=== PATIENT | male | born 1950 | race Caucasian/White ===

== ENCOUNTER 2016-09-23 13:41 | Emergency (ER) | payer OTHER ==
[2016-09-23 13:57] VITALS: TEMP 98.3
[2016-09-23] MEDS ORDERED: IPRATROPIUM/ALBUTEROL 3 ML VIAL NEB ONE ×2 (14:00→14:08)
--- NOTE | 2016-09-23 14:08 | ED.PDOC ---
History of Present Illness - General Chief Complaint: Respiratory Problem Stated Complaint: difficulty breathing Time Seen by Provider: 09/23/16 14:05 Source: RN notes reviewed, Vital Signs reviewed, EMS notes reviewed Exam Limitations: clinical condition, language barrier, physical impairment Additional Information: Patient awake and alert ,unable to communicate because of tracheostomy mechanical ventilation non verbal.Chest x-ray done this am report showing developing infiltrate right middle lobe. - History of Present Illness Initial Comments: He was brought by EMS after they were called up on this patient ventilator dependent after he was was taken out of his vent wanting to go out on the floor with walker. Timing/Duration: this morning Severity: moderate Possible Cause: chronic episodes, other - ventilator dependent,with tracheostomy ,chronic respiratory failure Respiratory Risk Factors: other - ventilator dependent chronic Allergies/Adverse Reactions: Allergies Cyclobenzaprine Allergy (Verified 09/23/16 13:57) Home Medications: Ambulatory Orders Albuterol Sulfate [Proair Hfa] 1 - 2 inh IN Q4H PRN 09/23/16 Alprazolam [Xanax] 1 mg PO Q4H PRN 09/23/16 Amoxicillin & Pot Clavulanate [Augmentin Xr 1000-62.5 mg] 1 tab PO ACHS #20 tab 09/23/16 Azithromycin Tab [Zithromax] 250 mg PO QD 09/23/16 Budesonide (Inhalation) [Pulmicort] 0.5 mg IN BID 09/23/16 Buspirone HCl 5 mg PO TID 09/23/16 Citalopram Hydrobromide [Celexa] 10 mg PO DAILY 09/23/16 Diltiazem HCl [Cardizem] 120 mg PO DAILY 09/23/16 Diphenhydramine HCl 25 mg PO BEDTIME PRN 09/23/16 Famotidine [Pepcid Tab] 20 mg PO BID 09/23/16 Furosemide [Lasix] 20 mg PO DAILY 09/23/16 HYDROcodone 10MG/APAP 325MG [[place] 10/325] 1 tab PO Q4H PRN 09/23/16 Ipratropium [place] 0.02 % IN Q4H PRN 09/23/16 Ipratropium/Albuterol [Duoneb] 3 ml NEB QID 09/23/16 Levalbuterol Nebs [Xopenex NEBS] 1.25 mg NEB Q6H 09/23/16 Loratadine 10 mg PO DAILY 09/23/16 Magnesium Hydroxide [Milk Of Magnesia] 30 ml PO DAILY PRN 09/23/16 Magnesium Hydroxide [Milk Of Magnesia] 30 ml PO EMMY-OTH-DAY 09/23/16 Melatonin 10 mg PO BEDTIME 09/23/16 Potassium Chloride [Micro-K] 10 meq PO DAILY 09/23/16 Tamsulosin [Flomax] 0.4 mg PO QD 09/23/16 predniSONE [Prednisone] 10 mg PO DAILY 09/23/16 Review of Systems - Review of Systems Unable to Obtain Due To: condition, clinical condition - non verbal Past Medical History (General) - Patient Medical History Hx of COPD: Yes Hx Cardiac Disorders: Yes - Atrial fib Hx Hypertension: Yes Hx Gastroesophageal Reflux: Yes Hx Hepatitis C: Yes - Vaccination History Hx Influenza Vaccination: Yes Hx Pneumococcal Vaccination: Yes - Social History Hx Tobacco Use: Yes Hx Depression: Yes - Activities of Daily Living Detention/Assisted Living (if applicable):: [facility] Grooming Ability: Minimum Assistance Eating (Feeding) Ability: Moderate Assistance Toileting Ability: Moderate Assistance Family Medical History - Family History Father Family History: Unknown Living Status: Unknown Physical Exam - Physical Exam General Appearance: Alert, No apparent distress, Well Developed ENT Exam: normal ENT inspection, TMs normal, pharynx normal Neck: trachea midline - tacheostomy tube intact,clear no mucus plug Respiratory: chest non-tender - on ventsimv vt-500,rr-14 peep 5,fio2-45 sat-96% , no respiratory distress, rhonchi, other - on vent simv,tv-500,rr14 peep5 fio2- 45,sao2 97% Gastrointestinal/Abdominal: normal bowel sounds, non tender, soft, no organomegaly, no pulsatile mass Extremity: non-tender, normal inspection, no pedal edema Neurologic: no motor/sensory deficits, alert Skin Exam: normal color, warm/dry Progress - Results/Orders Results/Orders: 09/23/16 14:09 SVN/Updraft Therapy .ONCE 09/23/16 Dinner Regular Diet Laboratory Results WBC 10.6 K/mm3 (4.8-10.8) 09/23/16 14:08 RBC 3.39 M/mm3 (4.70-6.10) L 09/23/16 14:08 Hgb 10.0 gm/dL (14.0-18.0) L 09/23/16 14:08 Hct 31.4 % (42.0-52.0) L 09/23/16 14:08 MCV 92.6 fl (80.0-94.0) 09/23/16 14:08 MCH 29.4 pg (27.0-31.0) 09/23/16 14:08 MCHC 31.7 g/dL (33.0-37.0) L 09/23/16 14:08 RDW 13.3 % (11.5-14.5) 09/23/16 14:08 Plt Count 167 K/mm3 (130-400) 09/23/16 14:08 MPV 7.7 fl (7.40-10.4) 09/23/16 14:08 Absolute Neuts (auto) 9.00 K/uL (1.8-6.8) H 09/23/16 14:08 Absolute Lymphs (auto) 0.70 K/uL (1.0-3.4) L 09/23/16 14:08 Absolute Monos (auto) 0.70 K/uL (0.2-0.8) 09/23/16 14:08 Absolute Eos (auto) 0.10 K/uL (0.0-0.4) 09/23/16 14:08 Absolute Basos (auto) 0.00 K/uL (0.0-0.1) 09/23/16 14:08 Neutrophils % 85.5 % (42.0-78.0) H 09/23/16 14:08 Lymphocytes % 6.7 % (20.0-50.0) L 09/23/16 14:08 Monocytes % 6.7 % (2.0-9.0) 09/23/16 14:08 Eosinophils % 0.8 % (1.0-5.0) L 09/23/16 14:08 Basophils % 0.3 % (0.0-2.0) 09/23/16 14:08 Sodium 137 mmol/L (135-145) 09/23/16 14:08 Potassium 5.3 mmol/L (3.6-5.0) H 09/23/16 14:08 Chloride 90 mmol/L (101-111) L 09/23/16 14:08 Carbon Dioxide 43 mmol/L (21-31) H 09/23/16 14:08 Anion Gap 9.3 (12-18) L 09/23/16 14:08 BUN 19 mg/dL (7-18) H 09/23/16 14:08 Creatinine 0.68 mg/dL (0.6-1.3) 09/23/16 14:08 BUN/Creatinine Ratio 27.9 (10-20) H 09/23/16 14:08 Random Glucose 135 mg/dL (70-105) H 09/23/16 14:08 Serum Osmolality 278.1 mOsm/L (275-295) 09/23/16 14:08 Calcium 8.8 mg/dL (8.4-10.2) 09/23/16 14:08 Total Bilirubin 0.5 mg/dL (0.2-1.0) 09/23/16 14:08 AST 21 IU/L (10-42) 09/23/16 14:08 ALT 14 IU/L (10-60) 09/23/16 14:08 Alkaline Phosphatase 49 IU/L (42-121) 09/23/16 14:08 Serum Total Protein 6.5 gm/dL (6.4-8.2) 09/23/16 14:08 Albumin 3.3 g/dl (3.2-5.5) 09/23/16 14:08 Globulin 3.2 gm/dL (2.3-3.5) 09/23/16 14:08 Albumin/Globulin Ratio 1.0 (1.1-1.9) L 09/23/16 14:08 Departure - Departure Clinical Impression: Respirator dependence, status, Chronic respiratory failure, unspecified whether with hypoxia or hypercapnia Pneumonia involving right lung Qualifiers: Pneumonia type: due to unspecified organism Lung location: middle lobe of lung Qualifier Code: (J18.9) Pneumonia, unspecified organism Time of Disposition: 16:29 Disposition: Discharge to Home or Self Care Condition: Good Departure Forms: ED Discharge - Pt. Copy, Patient Portal Self Enrollment Prescriptions: Amoxicillin & Pot Clavulanate [Augmentin Xr 1000-62.5 mg] 1 tab PO ACHS #20 tab Home Medications: Ambulatory Orders Albuterol Sulfate [Proair Hfa] 1 - 2 inh IN Q4H PRN 09/23/16 Alprazolam [Xanax] 1 mg PO Q4H PRN 09/23/16 Amoxicillin & Pot Clavulanate [Augmentin Xr 1000-62.5 mg] 1 tab PO ACHS #20 tab 09/23/16 Azithromycin Tab [Zithromax] 250 mg PO QD 09/23/16 Budesonide (Inhalation) [Pulmicort] 0.5 mg IN BID 09/23/16 Buspirone HCl 5 mg PO TID 09/23/16 Citalopram Hydrobromide [Celexa] 10 mg PO DAILY 09/23/16 Diltiazem HCl [Cardizem] 120 mg PO DAILY 09/23/16 Diphenhydramine HCl 25 mg PO BEDTIME PRN 09/23/16 Famotidine [Pepcid Tab] 20 mg PO BID 09/23/16 Furosemide [Lasix] 20 mg PO DAILY 09/23/16 HYDROcodone 10MG/APAP 325MG [[place] 10/325] 1 tab PO Q4H PRN 09/23/16 Ipratropium [place] 0.02 % IN Q4H PRN 09/23/16 Ipratropium/Albuterol [Duoneb] 3 ml NEB QID 09/23/16 Levalbuterol Nebs [Xopenex NEBS] 1.25 mg NEB Q6H 09/23/16 Loratadine 10 mg PO DAILY 09/23/16 Magnesium Hydroxide [Milk Of Magnesia] 30 ml PO DAILY PRN 09/23/16 Magnesium Hydroxide [Milk Of Magnesia] 30 ml PO EMMY-OTH-DAY 09/23/16 Melatonin 10 mg PO BEDTIME 09/23/16 Potassium Chloride [Micro-K] 10 meq PO DAILY 09/23/16 Tamsulosin [Flomax] 0.4 mg PO QD 09/23/16 predniSONE [Prednisone] 10 mg PO DAILY 09/23/16 Additional Instructions: RETURN TO EMERGENCY ROOM NEEDED
[2016-09-23 15:26] VITALS: BP 104/70; O2SAT 99
[2016-09-23] MEDS ORDERED: AMOXICILLIN & POT CLAVULANATE 875 MG TAB PO ONE (16:24)
== END 2016-09-23 17:04 | disposition home or self-care (01) ==
LOC: ER 13:41
DX: J18.9 Pneumonia, unspecified organism (principal); Z99.11 Dependence on respirator [ventilator] status; J96.10 Chronic respiratory failure, unspecified whether with hypoxia or hypercapnia; I48.91 Unspecified atrial fibrillation; Z79.899 Other long term (current) drug therapy; Z88.8 Allergy status to other drugs, medicaments and biological substances; I10 Essential (primary) hypertension; Z87.891 Personal history of nicotine dependence; F32.9 Major depressive disorder, single episode, unspecified; Z86.19 Personal history of other infectious and parasitic diseases
CPT/HCPCS: 80053; 85025; 94002; 94003; 94640; J7620

== ENCOUNTER 2016-10-03 10:51 | Emergency (ER) | payer OTHER ==
--- NOTE | 2016-10-03 11:30 | RAD ---
EXAM DESCRIPTION: XR CHEST 1 VIEW 10/03/2016 11:22 AM CLINICAL HISTORY: 65 y/o , M, mild ams COMPARISON: None FINDINGS: There is a tracheostomy with its tip at the thoracic and left. There are severe emphysematous changes throughout the lungs bilaterally with flattening of the diaphragms. There is no focal consolidation or pleural effusion. The heart is normal in size. The mediastinal contours are normal in appearance. The thoracic spine is age appropriate. The shoulders are unremarkable. Limited evaluation of the upper abdomen demonstrates no gross abnormalities. IMPRESSION: 1. No acute cardiopulmonary disease. 2. Severe emphysema. 3. Tracheostomy. Electronically signed by: Eugene Emery MD 10/03/2016 11:28
[2016-10-03 11:42] VITALS: TEMP 98.8
[2016-10-03] MEDS ORDERED: SODIUM CHLORIDE 0.9% 1000ML 1,000 ML IVS ONE (12:43)
--- NOTE | 2016-10-03 14:35 | ED.PDOC ---
History of Present Illness - General Chief Complaint: Respiratory Problem Stated Complaint: Difficulty Breathing Time Seen by Provider: 10/03/16 11:06 Source: patient, EMS notes reviewed, family, [facility] records Exam Limitations: language barrier - History of Present Illness Initial Comments: the patient is a 65-year-old male presenting with his from the [facility] secondary to altered mental status. The reports that he wasn' t waking up and interacting normally for him starting since 2 AM this morning. No shortness of breath and no nausea or vomiting. No fevers. He has a history of severe COPD with CO2 retention in the past. He is on a ventilator at night. He is on trach collar during the day. Since moving to the [facility] he has been getting several medications on a scheduled basis that he was only taking when necessary. One of these does include his Lasix and the others include Benadryl and Xanax at night for sleep which he had only intermittently taken prior. The patient was drowsy upon arrival here. He does move all extremities. He does shake his head yes and no appropriately. After 2 hours here he was actually acting normally. He is not complaining of anything at the time of discharge. Timing/Duration: 4-6 hours Severity: mild Improving Factors: nothing Worsening Factors: nothing Associated Symptoms: malaise Allergies/Adverse Reactions: Allergies Cyclobenzaprine Allergy (Verified 09/23/16 13:57) Home Medications: Ambulatory Orders Albuterol Sulfate [Proair Hfa] 1 - 2 inh IN Q4H PRN 09/23/16 Alprazolam [Xanax] 1 mg PO Q4H PRN 09/23/16 Amoxicillin & Pot Clavulanate [Augmentin Xr 1000-62.5 mg] 1 tab PO ACHS #20 tab 09/23/16 Azithromycin Tab [Zithromax] 250 mg PO QD 09/23/16 Budesonide (Inhalation) [Pulmicort] 0.5 mg IN BID 09/23/16 Buspirone HCl 5 mg PO TID 09/23/16 Citalopram Hydrobromide [Celexa] 10 mg PO DAILY 09/23/16 Diltiazem HCl [Cardizem] 120 mg PO DAILY 09/23/16 Diphenhydramine HCl 25 mg PO BEDTIME PRN 09/23/16 Famotidine [Pepcid Tab] 20 mg PO BID 09/23/16 Furosemide [Lasix] 20 mg PO DAILY 09/23/16 HYDROcodone 10MG/APAP 325MG [[place] 10/325] 1 tab PO Q4H PRN 09/23/16 Ipratropium [place] 0.02 % IN Q4H PRN 09/23/16 Ipratropium/Albuterol [Duoneb] 3 ml NEB QID 09/23/16 Levalbuterol Nebs [Xopenex NEBS] 1.25 mg NEB Q6H 09/23/16 Loratadine 10 mg PO DAILY 09/23/16 Magnesium Hydroxide [Milk Of Magnesia] 30 ml PO DAILY PRN 09/23/16 Magnesium Hydroxide [Milk Of Magnesia] 30 ml PO EMMY--09/23/16 Melatonin 10 mg PO BEDTIME 09/23/16 Potassium Chloride [Micro-K] 10 meq PO DAILY 09/23/16 Tamsulosin [Flomax] 0.4 mg PO QD 09/23/16 predniSONE [Prednisone] 10 mg PO DAILY 09/23/16 Review of Systems - Review of Systems Constitutional: States: malaise EENTM: States: no symptoms reported Respiratory: States: no symptoms reported Cardiology: States: no symptoms reported Gastrointestinal/Abdominal: States: no symptoms reported Genitourinary: States: no symptoms reported Musculoskeletal: States: no symptoms reported Skin: States: no symptoms reported Neurological: States: see HPI Endocrine: States: no symptoms reported All other Systems: No Change from Baseline Past Medical History (General) - Patient Medical History Hx of COPD: Yes Hx Cardiac Disorders: Yes Hx Congestive Heart Failure: No Hx Hypertension: No Hx Diabetes: No Hx Gastroesophageal Reflux: Yes Hx Hepatitis C: Yes Hx MRSA: No Surgical History: other - Vaccination History Hx Tetanus, Diphtheria Vaccination: Yes Hx Influenza Vaccination: Yes Hx Pneumococcal Vaccination: Yes - Social History Hx Tobacco Use: No Hx Depression: Yes - Activities of Daily Living Group Home/Assisted Living (if applicable):: [facility] - Female History Patient is a Female of Child Bearing Age (10 -59 yrs old): No - Triage Comment ED Triage Comment: Patient's states "his CO2 is high" Family Medical History - Family History Father Family History: Unknown Living Status: Unknown Physical Exam - Physical Exam General Appearance: Alert, Comfortable, No apparent distress Eye Exam: bilateral normal Ears, Nose, Throat: normal ENT inspection Neck: non-tender, full range of motion, supple, other - trach collar is in place. Respiratory: chest non-tender, other - the patient does havemild decreased breath sounds at the bases. He does actually have quiet breath sounds throughout. No wheezes. No significant rales currently. Cardiovascular/Chest: normal peripheral pulses, no edema, other - regular rate Peripheral Pulses: radial,right: 2+, radial,left: 2+, dorsalis pedis,right: 2+, dorsalis pedis,left: 2+ Gastrointestinal/Abdominal: non tender, soft - G-tube scar is present. Rectal Exam: deferred Back Exam: normal inspection, no CVA tenderness Extremity: normal range of motion, non-tender, normal inspection, no pedal edema , normal capillary refill - the patient is thin Neurologic: alert, normal mood/affect - he is initially drowsy but now is alert andinteractive, oriented x 3 Skin Exam: normal color Comments: Vital Signs - 24 hr 10/03/16 10/03/16 10/03/16 11:32 11:42 14:02 Temperature 98.8 F Pulse Rate 78 78 Pulse Rate [ 78 78 Apical] Respiratory 20 20 18 Rate Respiratory 18 Rate [Volume Control Data] Blood Pressure 103/69 [Left Arm] O2 Sat by Pulse 96 98 Oximetry 10/03/16 14:08 Temperature Pulse Rate Pulse Rate [ Apical] Respiratory 18 Rate Respiratory 20 Rate [Volume Control Data] Blood Pressure [Left Arm] O2 Sat by Pulse Oximetry Progress - Progress Progress: 10/03/16 14:38 the patient is a 65-year-old male with a history of severe COPD brought in with his secondary to altered mental status. The patient has returned back to his baseline mental status. I do believe changing his sleep medications to a as needed order may help with this. Additionally he does appear to have a mild metabolic alkalosis. He does appear clinically mildly dehydrated. I would recommend changing his Lasix to an as-needed basis or at most possibly 3 times weekly. He doesn't have a repeat ABG performed in 1-2 weeks. He needs to increase his fluid intake. ER warnings were given for any worsening. The patient is doing well at the time of discharge. 10/03/16 14:49 - Results/Orders Results/Orders: Laboratory Tests 10/03/16 10/03/16 10/03/16 11:07 11:08 11:45 WBC 8.5 RBC 3.54 L Hgb 10.1 L Hct 32.4 L MCV 91.6 MCH 28.5 MCHC 31.2 L RDW 13.5 Plt Count 222 MPV 7.5 Absolute Neuts (auto) 6.50 Absolute Lymphs (auto) 0.80 L Absolute Monos (auto) 0.90 H Absolute Eos (auto) 0.20 Absolute Basos (auto) 0.00 Neutrophils % 76.7 Lymphocytes % 9.9 L Monocytes % 10.4 H Eosinophils % 2.5 Basophils % 0.5 pCO2 50 H pO2 102 HCO3 43.6 ABG pH 7.550 H ABG O2 Saturation 99.6 H ABG Base Excess 18.5 ABG Deoxyhemoglobin 0.4 Oxyhemoglobin % 97.9 Carboxyhemoglobin % 0.8 Methemoglobin % Sat 0.9 Calc Total Hemoglobin 9.4 L Sodium 140 Potassium 4.6 Chloride 92 L Carbon Dioxide 45 H Anion Gap 7.6 L BUN 15 Creatinine 0.56 L BUN/Creatinine Ratio 26.8 H Random Glucose 115 H Serum Osmolality 281.1 Calcium 9.0 Magnesium 2.0 Total Bilirubin 0.5 AST 17 ALT 13 Alkaline Phosphatase 46 Creatine Kinase 17 L CK-MB (CK-2) 4.0 CK-MB (CK-2) % Not Reportable Troponin I 0.02 B-Natriuretic Peptide 17.6 Serum Total Protein 6.8 Albumin 3.2 Globulin 3.6 H Albumin/Globulin Ratio 0.9 L urinalysis is alkalotic, otherwise within normal limits. Departure - Departure Clinical Impression: Alkalosis, metabolic, Dehydration, mild Adverse effects of medication Qualifiers: Encounter type: initial encounter Qualifier Code: (T88.7XXA) Unspecified adverse effect of drug or medicament, initial encounter Disposition: Discharge to SNF Condition: Fair Departure Forms: ED Discharge - Pt. Copy, Patient Portal Self Enrollment Instructions: DI for Dehydration -- Adult Activity: increase activity as tolerated Referrals: LIYAH VALENCIA [Primary Care Provider] - 1-2 Weeks Home Medications: Ambulatory Orders Albuterol Sulfate [Proair Hfa] 1 - 2 inh IN Q4H PRN 09/23/16 Alprazolam [Xanax] 1 mg PO Q4H PRN 09/23/16 Amoxicillin & Pot Clavulanate [Augmentin Xr 1000-62.5 mg] 1 tab PO ACHS #20 tab 09/23/16 Azithromycin Tab [Zithromax] 250 mg PO QD 09/23/16 Budesonide (Inhalation) [Pulmicort] 0.5 mg IN BID 09/23/16 Buspirone HCl 5 mg PO TID 09/23/16 Citalopram Hydrobromide [Celexa] 10 mg PO DAILY 09/23/16 Diltiazem HCl [Cardizem] 120 mg PO DAILY 09/23/16 Diphenhydramine HCl 25 mg PO BEDTIME PRN 09/23/16 Famotidine [Pepcid Tab] 20 mg PO BID 09/23/16 Furosemide [Lasix] 20 mg PO DAILY 09/23/16 HYDROcodone 10MG/APAP 325MG [[place] 10/325] 1 tab PO Q4H PRN 09/23/16 Ipratropium [place] 0.02 % IN Q4H PRN 09/23/16 Ipratropium/Albuterol [Duoneb] 3 ml NEB QID 09/23/16 Levalbuterol Nebs [Xopenex NEBS] 1.25 mg NEB Q6H 09/23/16 Loratadine 10 mg PO DAILY 09/23/16 Magnesium Hydroxide [Milk Of Magnesia] 30 ml PO DAILY PRN 09/23/16 Magnesium Hydroxide [Milk Of Magnesia] 30 ml PO EMMY-OTH-DAY 09/23/16 Melatonin 10 mg PO BEDTIME 09/23/16 Potassium Chloride [Micro-K] 10 meq PO DAILY 09/23/16 Tamsulosin [Flomax] 0.4 mg PO QD 09/23/16 predniSONE [Prednisone] 10 mg PO DAILY 09/23/16 Additional Instructions: the patient is a 65-year-old male with a history of severe COPD brought in with his secondary to altered mental status. The patient has returned back to his baseline mental status. I do believe changing his sleep medications to a as needed order may help with this. Additionally he does appear to have a mild metabolic alkalosis. He does appear clinically mildly dehydrated. I would recommend changing his Lasix to an as-needed basis or at most possibly 3 times weekly. He doesn't have a repeat ABG performed in 1-2 weeks. He needs to increase his fluid intake. ER warnings were given for any worsening. The patient is doing well at the time of discharge.
[2016-10-03 15:20] VITALS: BP 112/70; O2SAT 92
== END 2016-10-03 15:19 ==
LOC: ER 10:51
DX: E87.3 Alkalosis (principal); E86.0 Dehydration; T50.905A Adverse effect of unspecified drugs, medicaments and biological substances, initial encounter; J44.9 Chronic obstructive pulmonary disease, unspecified; Z99.11 Dependence on respirator [ventilator] status; Z79.899 Other long term (current) drug therapy; Z88.8 Allergy status to other drugs, medicaments and biological substances; K21.9 Gastro-esophageal reflux disease without esophagitis; Z86.19 Personal history of other infectious and parasitic diseases

== ENCOUNTER 2016-10-07 02:07 | Emergency (ER) | payer OTHER ==
[2016-10-07 02:20] VITALS: O2SAT 100
--- NOTE | 2016-10-07 02:35 | ED.PDOC ---
History of Present Illness - General Chief Complaint: General Stated Complaint: low grade fever Time Seen by Provider: 10/07/16 02:24 Source: patient, RN notes reviewed, Vital Signs reviewed, EMS Exam Limitations: physical impairment, other - On Vent - History of Present Illness Initial Comments: Patient reports abdominal pain that started this morning. No n/v/d. EMS reports he is anxious and does not want to be at SNF facility. Patient was seen here 09/23/06 and diagnosed with pneumonia. He was also seen here 10/03/16 and diagnosed with dehydration and mild alkalosis. 0245: reports that he was having a lot of drainage from his trach today and that he has been fatigued. He slept 5 hours today. She reports he has been having difficulty breathing and that he tends to fight the vent and does not like to be on it. Normally he is off the vent during the day, very alert and walking around. Timing/Duration: unsure Severity: moderate Associated Symptoms: denies symptoms Allergies/Adverse Reactions: Allergies Cyclobenzaprine Allergy (Verified 09/23/16 13:57) Home Medications: Ambulatory Orders Albuterol Sulfate [Proair Hfa] 1 - 2 inh IN Q4H PRN 09/23/16 Alprazolam [Xanax] 1 mg PO Q4H PRN 09/23/16 Amoxicillin & Pot Clavulanate [Augmentin Xr 1000-62.5 mg] 1 tab PO ACHS #20 tab 09/23/16 Azithromycin Tab [Zithromax] 250 mg PO QD 09/23/16 Budesonide (Inhalation) [Pulmicort] 0.5 mg IN BID 09/23/16 Buspirone HCl 5 mg PO TID 09/23/16 Citalopram Hydrobromide [Celexa] 10 mg PO DAILY 09/23/16 Diltiazem HCl [Cardizem] 120 mg PO DAILY 09/23/16 Diphenhydramine HCl 25 mg PO BEDTIME PRN 09/23/16 Famotidine [Pepcid Tab] 20 mg PO BID 09/23/16 Furosemide [Lasix] 20 mg PO DAILY 09/23/16 HYDROcodone 10MG/APAP 325MG [[place] 10/325] 1 tab PO Q4H PRN 09/23/16 Ipratropium [place] 0.02 % IN Q4H PRN 09/23/16 Ipratropium/Albuterol [Duoneb] 3 ml NEB QID 09/23/16 Levalbuterol Nebs [Xopenex NEBS] 1.25 mg NEB Q6H 09/23/16 Loratadine 10 mg PO DAILY 09/23/16 Magnesium Hydroxide [Milk Of Magnesia] 30 ml PO DAILY PRN 09/23/16 Magnesium Hydroxide [Milk Of Magnesia] 30 ml PO EMMY-OTH-DAY 09/23/16 Melatonin 10 mg PO BEDTIME 09/23/16 Potassium Chloride [Micro-K] 10 meq PO DAILY 09/23/16 Tamsulosin [Flomax] 0.4 mg PO QD 09/23/16 predniSONE [Prednisone] 10 mg PO DAILY 09/23/16 Guaifenesin 400 mg PO BID 10/07/16 Review of Systems - Review of Systems Unable to Obtain Due To: other - On vent. Past Medical History (General) - Patient Medical History Hx of COPD: Yes Hx Cardiac Disorders: Yes Hx Congestive Heart Failure: No Hx Hypertension: No Hx Diabetes: No Hx Gastroesophageal Reflux: Yes Hx Hepatitis C: Yes Hx MRSA: No - Vaccination History Hx Tetanus, Diphtheria Vaccination: Yes Hx Influenza Vaccination: Yes Hx Pneumococcal Vaccination: Yes Immunizations Up to Date: Yes - Social History Hx Tobacco Use: No Hx Depression: Yes - Activities of Daily Living [facility]if applicable[facility]:: [facility] Family Medical History - Family History Father Family History: Unknown Living Status: Unknown Physical Exam - Physical Exam General Appearance: Comfortable, Frail, No apparent distress Neck: non-tender, full range of motion, supple, other - Tracheostomy tube in place and connected to vent. Respiratory: no accessory muscle use, wheezing - RLL, other - Hyperventiating Cardiovascular/Chest: normal peripheral pulses, regular rate, rhythm, no edema, no gallop, no JVD, no murmur Peripheral Pulses: dorsalis pedis,right: 2+, dorsalis pedis,left: 2+ Gastrointestinal/Abdominal: abnormal bowel sounds - hyperactive, guarding, tenderness - generalized, other - Patient is holding abdomen very tensely. Extremity: normal range of motion, non-tender, normal inspection, no pedal edema , no calf tenderness Neurologic: no motor/sensory deficits Skin Exam: normal color, warm/dry Lymphatic: no adenopathy Progress - Progress Progress: 10/07/16 04:26 Discussed results with patient and . He does have a slightly elevated WBC count but no obvious source of infection. CXR and urine are clear. Abd X-ray shows increased gas but not acute process. He is feeling better after the Ativan. He and are agreeable to returning to the SNF. He was a little dehydrated so once again feel then should cut back on his Lasix dose. - Results/Orders Results/Orders: Laboratory Tests 10/07/16 10/07/16 02:37 03:04 WBC 13.3 H RBC 3.41 L Hgb 9.8 L Hct 31.2 L MCV 91.4 MCH 28.7 MCHC 31.4 L RDW 13.5 Plt Count 200 MPV 7.1 L Absolute Neuts (auto) 11.60 H Absolute Lymphs (auto) 0.40 L Absolute Monos (auto) 1.20 H Absolute Eos (auto) 0.10 Absolute Basos (auto) 0.00 Neutrophils % 87.0 H Lymphocytes % 2.9 L Monocytes % 9.2 H Eosinophils % 0.7 L Basophils % 0.2 pCO2 79 H pO2 80 L HCO3 47.1 ABG pH 7.390 ABG O2 Saturation 97.2 ABG Base Excess 19.3 ABG Deoxyhemoglobin 2.8 Oxyhemoglobin % 95.1 Carboxyhemoglobin % 1.2 Methemoglobin % Sat 1.0 Calc Total Hemoglobin 9.5 L Sodium 139 Potassium 4.6 Chloride 87 L Carbon Dioxide 48 H Anion Gap 8.6 L BUN 21 H Creatinine 0.58 L BUN/Creatinine Ratio 36.2 H Random Glucose 101 Serum Osmolality 280.7 Calcium 9.0 Total Bilirubin 0.3 AST 18 ALT 14 Alkaline Phosphatase 49 Serum Total Protein 7.0 Albumin 3.4 Globulin 3.6 H Albumin/Globulin Ratio 0.9 L reports his CO2 is normally in the 70's and has been as high at 150's. Urine shows large blood, protein and ketones. otherwise normal - EKG/XRAY/CT XRAY: Chest and Abd Xray Comments: No acute changes per Radiologist Departure - Departure Clinical Impression: Chronic respiratory failure, unspecified whether with hypoxia or hypercapnia, Dehydration, mild, Respirator dependence, status, Hematuria Time of Disposition: 04:29 Disposition: Discharge to SNF Condition: Fair Departure Forms: ED Discharge - Pt. Copy, Patient Portal Self Enrollment Referrals: LIYAH VALENCIA [Primary Care Provider] - 1-2 Weeks Home Medications: Ambulatory Orders Albuterol Sulfate [Proair Hfa] 1 - 2 inh IN Q4H PRN 09/23/16 Alprazolam [Xanax] 1 mg PO Q4H PRN 09/23/16 Amoxicillin & Pot Clavulanate [Augmentin Xr 1000-62.5 mg] 1 tab PO ACHS #20 tab 09/23/16 Azithromycin Tab [Zithromax] 250 mg PO QD 09/23/16 Budesonide (Inhalation) [Pulmicort] 0.5 mg IN BID 09/23/16 Buspirone HCl 5 mg PO TID 09/23/16 Citalopram Hydrobromide [Celexa] 10 mg PO DAILY 09/23/16 Diltiazem HCl [Cardizem] 120 mg PO DAILY 09/23/16 Diphenhydramine HCl 25 mg PO BEDTIME PRN 09/23/16 Famotidine [Pepcid Tab] 20 mg PO BID 09/23/16 Furosemide [Lasix] 20 mg PO DAILY 09/23/16 HYDROcodone 10MG/APAP 325MG [[place] 10/325] 1 tab PO Q4H PRN 09/23/16 Ipratropium [place] 0.02 % IN Q4H PRN 09/23/16 Ipratropium/Albuterol [Duoneb] 3 ml NEB QID 09/23/16 Levalbuterol Nebs [Xopenex NEBS] 1.25 mg NEB Q6H 09/23/16 Loratadine 10 mg PO DAILY 09/23/16 Magnesium Hydroxide [Milk Of Magnesia] 30 ml PO DAILY PRN 09/23/16 Magnesium Hydroxide [Milk Of Magnesia] 30 ml PO EMMY-OTH-DAY 09/23/16 Melatonin 10 mg PO BEDTIME 09/23/16 Potassium Chloride [Micro-K] 10 meq PO DAILY 09/23/16 Tamsulosin [Flomax] 0.4 mg PO QD 09/23/16 predniSONE [Prednisone] 10 mg PO DAILY 09/23/16 Guaifenesin 400 mg PO BID 10/07/16 Additional Instructions: Recommend decreasing Lasix dose as this was his second visit within 3 days showing he is dehydrated. Recheck CBC in 24-48 hours due to WBC of 13 Urine culture sent.
[2016-10-07] MEDS ORDERED: SODIUM CHLORIDE 0.9% 1000ML 1,000 ML IVS ONE (02:39)
--- NOTE | 2016-10-07 03:20 | RAD ---
EXAM DESCRIPTION: XR ABDOMEN 2 VIEWS SUPINE ERECT CLINICAL HISTORY: 65 y/o , M, abd pain/vent dependant COMPARISON: Portable AP view of the chest October 03, 2016 TECHNIQUE: Acute abdominal series FINDINGS: There is a tracheostomy with its tip at the thoracic and left. There are severe emphysematous changes throughout the lungs bilaterally. The lungs are clear without focal consolidation or pleural effusion. The heart is normal in size. The mediastinal contours are normal. The bowel gas pattern is normal. There is retained contrast throughout the colon. There is no evidence of free air. There are no abnormal masses or calcifications. Limited evaluation of the liver, spleen, and kidneys demonstrate no gross abnormalities. The osseous structures are age appropriate. IMPRESSION: Chest: 1. No acute cardiopulmonary disease. 2. Stable severe emphysema. Abdomen pelvis: 1. No acute intraabdominal process. 2. Retained enteric contrast. Electronically signed by: Eugene Emery MD 10/07/2016 03:18
[2016-10-07 04:11] VITALS: BP 145/84
[2016-10-07 05:01] VITALS: TEMP 97.7
== END 2016-10-07 05:00 ==
LOC: ER 02:07
DX: J96.10 Chronic respiratory failure, unspecified whether with hypoxia or hypercapnia (principal); E86.0 Dehydration; R31.9 Hematuria, unspecified; J44.9 Chronic obstructive pulmonary disease, unspecified; K21.9 Gastro-esophageal reflux disease without esophagitis; B19.20 Unspecified viral hepatitis C without hepatic coma; Z99.11 Dependence on respirator [ventilator] status; Z79.899 Other long term (current) drug therapy; Z88.8 Allergy status to other drugs, medicaments and biological substances; Z87.01 Personal history of pneumonia (recurrent)
CPT/HCPCS: 36600; 74020; 80053; 81001; 82803; 82805; 85025; 87086; 94002; J2060; J7030

== ENCOUNTER 2016-11-06 22:20 | Emergency (ER) | payer OTHER ==
--- NOTE | 2016-11-06 22:55 | ED.PDOC ---
History of Present Illness - General Chief Complaint: Head Injury Stated Complaint: sob, and fall Time Seen by Provider: 11/06/16 22:32 Additional Information: PT HAS HAD REPORTEDLY ELEVATED CO2 TODAY. HAS ALSO HAD AMS. GOT UP OUT OF HIS CHAIR AND FELL FORWARD STRIKING HIS HEAD. HIS STATES HES SIGNIFICANTLY CONFUSED WHICH IS UNUSUAL FOR HIM. - History of Present Illness Timing/Duration: unsure Severity: moderate Improving Factors: nothing Worsening Factors: nothing Associated Symptoms: denies symptoms Allergies/Adverse Reactions: Allergies Cyclobenzaprine Allergy (Verified 11/06/16 22:32) Home Medications: Ambulatory Orders Albuterol Sulfate [Proair Hfa] 1 - 2 inh IN Q4H PRN 09/23/16 Alprazolam [Xanax] 1 mg PO Q4H PRN 09/23/16 Amoxicillin & Pot Clavulanate [Augmentin Xr 1000-62.5 mg] 1 tab PO ACHS #20 tab 09/23/16 Azithromycin Tab [Zithromax] 250 mg PO QD 09/23/16 Budesonide (Inhalation) [Pulmicort] 0.5 mg IN BID 09/23/16 Buspirone HCl 5 mg PO TID 09/23/16 Citalopram Hydrobromide [Celexa] 10 mg PO DAILY 09/23/16 Diltiazem HCl [Cardizem] 120 mg PO DAILY 09/23/16 Diphenhydramine HCl 25 mg PO BEDTIME PRN 09/23/16 Famotidine [Pepcid Tab] 20 mg PO BID 09/23/16 Furosemide [Lasix] 20 mg PO DAILY 09/23/16 HYDROcodone 10MG/APAP 325MG [[place] 10/325] 1 tab PO Q4H PRN 09/23/16 Ipratropium [place] 0.02 % IN Q4H PRN 09/23/16 Ipratropium/Albuterol [Duoneb] 3 ml NEB QID 09/23/16 Levalbuterol Nebs [Xopenex NEBS] 1.25 mg NEB Q6H 09/23/16 Loratadine 10 mg PO DAILY 09/23/16 Magnesium Hydroxide [Milk Of Magnesia] 30 ml PO DAILY PRN 09/23/16 Magnesium Hydroxide [Milk Of Magnesia] 30 ml PO EMMY-OTH-DAY 09/23/16 Melatonin 10 mg PO BEDTIME 09/23/16 Potassium Chloride [Micro-K] 10 meq PO DAILY 09/23/16 Tamsulosin [Flomax] 0.4 mg PO QD 09/23/16 predniSONE [Prednisone] 10 mg PO DAILY 09/23/16 Guaifenesin 400 mg PO BID 10/07/16 Review of Systems - Review of Systems Constitutional: Denies: chills, fever EENTM: Denies: ear pain, mouth pain Respiratory: States: short of breath. Denies: cough, wheezing Cardiology: Denies: chest pain, palpitations Gastrointestinal/Abdominal: Denies: abdominal pain, diarrhea, nausea, vomiting Musculoskeletal: Denies: back pain, joint pain, muscle pain Skin: Denies: no symptoms reported Neurological: States: other - ACUTELY CONFUSED Endocrine: States: no symptoms reported Hematologic/Lymphatic: States: no symptoms reported Past Medical History (General) - Patient Medical History Hx of COPD: Yes Hx Cardiac Disorders: Yes Hx Congestive Heart Failure: No Hx Hypertension: No Hx Diabetes: No Hx Gastroesophageal Reflux: Yes Hx Hepatitis C: Yes Hx MRSA: No - Vaccination History Hx Tetanus, Diphtheria Vaccination: Yes Hx Influenza Vaccination: Yes Hx Pneumococcal Vaccination: Yes - Social History Hx Tobacco Use: No Hx Depression: Yes Family Medical History - Family History Father Family History: Unknown Living Status: Unknown Physical Exam - Physical Exam General Appearance: Agitated, No apparent distress, Restless Eye Exam: bilateral normal Ears, Nose, Throat: hearing grossly normal, normal ENT inspection Neck: non-tender, full range of motion, supple Respiratory: lungs clear, no respiratory distress, other - DIMINISHED BILATERALLY Cardiovascular/Chest: regular rate, rhythm, no murmur Gastrointestinal/Abdominal: normal bowel sounds, non tender, soft, no organomegaly Back Exam: normal inspection, no CVA tenderness Extremity: normal range of motion, normal inspection, other - 2+ PITTING EDEMA OF LE'S WHICH HAS BEEN PRESENT FOR PAST 2 MONTHS Neurologic: other - APPEARS GROSSLY NON FOCAL BUT CANNOT FORMALLY TEST DUE TO PT 'S CONFUSION Skin Exam: other - LUE WITH CHRONIC APPEARING ECCHYMOSIS, O/W EXT EXAM IS UNREMARKABLE. Lymphatic: no adenopathy Progress - Progress Progress: 11/07/16 03:54 RESTING, VSS, PCO2 80 BUT PH NL. STATES BASELINE IS ABOUT 72 WITH HIS COPD. HE DOES HAVE CONFUSION FREQUENTLY AT [facility] BUT SHE WAS CONCERNED BECAUSE OF THE HEAD TRAUMA AND IT WAS MORE SEVERE AND LASTED LONGER THAN PREVIOUS EPISODES. - EKG/XRAY/CT XRAY: chest - TRACH IN PLACE, NO LOBAR INFILTRATES Departure - Departure Clinical Impression: Acute confusion due to medical condition Contusion of scalp Qualifiers: Encounter type: initial encounter Qualifier Code: (S00.03XA) Contusion of scalp , initial encounter COPD (chronic obstructive pulmonary disease) Qualifiers: COPD type: emphysema Emphysema type: panlobular Qualifier Code: (J43.1) Panlobular emphysema Disposition: Discharge to SNF Condition: Fair Departure Forms: ED Discharge - Pt. Copy, Patient Portal Self Enrollment Instructions: Contusion Home Medications: Ambulatory Orders Albuterol Sulfate [Proair Hfa] 1 - 2 inh IN Q4H PRN 09/23/16 Alprazolam [Xanax] 1 mg PO Q4H PRN 09/23/16 Amoxicillin & Pot Clavulanate [Augmentin Xr 1000-62.5 mg] 1 tab PO ACHS #20 tab 09/23/16 Azithromycin Tab [Zithromax] 250 mg PO QD 09/23/16 Budesonide (Inhalation) [Pulmicort] 0.5 mg IN BID 09/23/16 Buspirone HCl 5 mg PO TID 09/23/16 Citalopram Hydrobromide [Celexa] 10 mg PO DAILY 09/23/16 Diltiazem HCl [Cardizem] 120 mg PO DAILY 09/23/16 Diphenhydramine HCl 25 mg PO BEDTIME PRN 09/23/16 Famotidine [Pepcid Tab] 20 mg PO BID 09/23/16 Furosemide [Lasix] 20 mg PO DAILY 09/23/16 HYDROcodone 10MG/APAP 325MG [[place] 10/325] 1 tab PO Q4H PRN 09/23/16 Ipratropium [place] 0.02 % IN Q4H PRN 09/23/16 Ipratropium/Albuterol [Duoneb] 3 ml NEB QID 09/23/16 Levalbuterol Nebs [Xopenex NEBS] 1.25 mg NEB Q6H 09/23/16 Loratadine 10 mg PO DAILY 09/23/16 Magnesium Hydroxide [Milk Of Magnesia] 30 ml PO DAILY PRN 09/23/16 Magnesium Hydroxide [Milk Of Magnesia] 30 ml PO EMMY-OTH-DAY 09/23/16 Melatonin 10 mg PO BEDTIME 09/23/16 Potassium Chloride [Micro-K] 10 meq PO DAILY 09/23/16 Tamsulosin [Flomax] 0.4 mg PO QD 09/23/16 predniSONE [Prednisone] 10 mg PO DAILY 09/23/16 Guaifenesin 400 mg PO BID 10/07/16
[2016-11-06] MEDS ORDERED: LORazepam 0.5 MG TAB ONE (23:29)
--- NOTE | 2016-11-07 00:05 | CT ---
EXAM: Cervical Spine CLINICAL INDICATION: 65-year-old male found on the ground following fall at a retirement, currently unresponsive. Laceration LEFT cheek and LEFT side of temporal lobe with a knot on LEFT side of the head, generalized pain. TECHNIQUE: Cervical spine CT was performed without contrast. Multiplanar reformatted images were provided. COMPARISON: None. FINDINGS: There is normal alignment of the cervical spine without fracture or subluxation. The facets are normal in alignment bilaterally. The posterior elements including the spinous processes are intact. Straightening of the cervical spine which may be secondary to positioning for the examination. Morphology and attenuation of the vertebral bodies and intervertebral disc spaces is compatible with mild multilevel degenerative change. Bilateral facet hypertrophy present. Posterior osseous spurring results in mild central spinal canal and moderate neural foraminal narrowing at the C3-4, C4-5, five six and C6-7 levels. The pre-and paravertebral soft tissues are within normal limits. The airway is patent. Extraspinal imaging is within normal limits. Emphysema. Tracheostomy tube terminates at the level of the thoracic inlet. IMPRESSION: 1. Straightening of the cervical spine which may be secondary to positioning for the examination versus spasm. 2. Degenerative changes detailed above. 3. No fracture or acute subluxation. 4. Severe emphysema. Electronically signed by: Skylar Hsieh MD 11/07/2016 12:04 AM FIRE INSPECTOR
[2016-11-07 01:13] VITALS: BP 139/68; TEMP 98.2
[2016-11-07] MEDS ORDERED: IPRATROPIUM/ALBUTEROL 3 ML VIAL NEB ONE (02:49)
[2016-11-07 03:55] VITALS: O2SAT 97
--- NOTE | 2016-11-11 13:45 | CT ---
EXAM DESCRIPTION: Head CLINICAL HISTORY: HEAD INJURY unresponsive, laceration COMPARISON: None Available. TECHNIQUE: Contiguous axial images of the brain were obtained without the administration of intravenous contrast. FINDINGS: There is no acute intracranial hemorrhage or mass effect. There is generalized atrophy. Ventricular system is within normal limits. There is adequate huber-white matter differentiation. There is no skull fracture. The visualized paranasal sinuses and mastoid air cells are within normal limits. Filling defect within the right external ear canal may represent cerumen. IMPRESSION: No acute intracranial abnormalities. Electronically signed by: Agustin Mcgee MD 11/06/2016 11:59 PM LEGAL ENTITY CONTROLLER
--- NOTE | 2016-11-16 00:17 | CT ---
EXAM: Cervical Spine CLINICAL INDICATION: 65-year-old male found on the ground following fall at a [facility], currently unresponsive. Laceration LEFT cheek and LEFT side of temporal lobe with a knot on LEFT side of the head, generalized pain. TECHNIQUE: Cervical spine CT was performed without contrast. Multiplanar reformatted images were provided. COMPARISON: None. FINDINGS: There is normal alignment of the cervical spine without fracture or subluxation. The facets are normal in alignment bilaterally. The posterior elements including the spinous processes are intact. Straightening of the cervical spine which may be secondary to positioning for the examination. Morphology and attenuation of the vertebral bodies and intervertebral disc spaces is compatible with mild multilevel degenerative change. Bilateral facet hypertrophy present. Posterior osseous spurring results in mild central spinal canal and moderate neural foraminal narrowing at the C3-4, C4-5, five six and C6-7 levels. The pre-and paravertebral soft tissues are within normal limits. The airway is patent. Extraspinal imaging is within normal limits. Emphysema. Tracheostomy tube terminates at the level of the thoracic inlet. IMPRESSION: 1. Straightening of the cervical spine which may be secondary to positioning for the examination versus spasm. 2. Degenerative changes detailed above. 3. No fracture or acute subluxation. 4. Severe emphysema. Electronically signed by: Skylar Hsieh MD 11/07/2016 12:04 AM VALUATION CONSULTANT
--- NOTE | 2016-11-16 00:17 | RAD ---
EXAM: Chest,1 View CLINICAL INDICATION: 65-year-old male status post fall with pain. TECHNIQUE: Single view, AP portable chest was obtained. COMPARISON: 10/03/2016. FINDINGS: Unremarkable cardiac and mediastinal silhouette. Heart size is normal. Lungs are clear without focal opacity, pneumothorax or pleural effusions. Large lung volumes and flattening of the diaphragms suggestive of chronic obstructive lung disease. Tracheostomy tube terminates at the level of the thoracic inlet. The visualized bones are within normal limits. IMPRESSION: No acute cardiopulmonary abnormalities. Electronically signed by: Skylar Hsieh MD 11/06/2016 11:20 PM TIRE AND TUBE REPAIRER
--- NOTE | 2016-11-19 10:47 | CT ---
EXAM: Cervical Spine CLINICAL INDICATION: 65-year-old male found on the ground following fall at a [facility], currently unresponsive. Laceration LEFT cheek and LEFT side of temporal lobe with a knot on LEFT side of the head, generalized pain. TECHNIQUE: Cervical spine CT was performed without contrast. Multiplanar reformatted images were provided. COMPARISON: None. FINDINGS: There is normal alignment of the cervical spine without fracture or subluxation. The facets are normal in alignment bilaterally. The posterior elements including the spinous processes are intact. Straightening of the cervical spine which may be secondary to positioning for the examination. Morphology and attenuation of the vertebral bodies and intervertebral disc spaces is compatible with mild multilevel degenerative change. Bilateral facet hypertrophy present. Posterior osseous spurring results in mild central spinal canal and moderate neural foraminal narrowing at the C3-4, C4-5, five six and C6-7 levels. The pre-and paravertebral soft tissues are within normal limits. The airway is patent. Extraspinal imaging is within normal limits. Emphysema. Tracheostomy tube terminates at the level of the thoracic inlet. IMPRESSION: 1. Straightening of the cervical spine which may be secondary to positioning for the examination versus spasm. 2. Degenerative changes detailed above. 3. No fracture or acute subluxation. 4. Severe emphysema. Electronically signed by: Skylar Hsieh MD 11/07/2016 12:04 AM CLOTH PAINTER
== END 2016-11-07 05:10 ==
LOC: ER 22:20
DX: S00.03XA Contusion of scalp, initial encounter (principal); J43.1 Panlobular emphysema; R41.0 Disorientation, unspecified; Z88.8 Allergy status to other drugs, medicaments and biological substances; Z79.899 Other long term (current) drug therapy; K21.9 Gastro-esophageal reflux disease without esophagitis; Z86.19 Personal history of other infectious and parasitic diseases; F32.9 Major depressive disorder, single episode, unspecified; Z93.0 Tracheostomy status; W19.XXXA Unspecified fall, initial encounter; Y92.129 Unspecified place in nursing home as the place of occurrence of the external cause
CPT/HCPCS: 36415; 36600; 70450; 71010; 72125; 80053; 82803; 82805; 85025; 94002; 94640; J2060; J7620

== ENCOUNTER 2017-01-22 04:08 | Emergency (ER) | payer OTHER ==
--- NOTE | 2017-01-22 04:20 | ED.PDOC ---
History of Present Illness - General Chief Complaint: Cardiac Respiratory Arrest Stated Complaint: cardiac arrest Time Seen by Provider: 01/22/17 04:15 Source: EMS notes reviewed, [facility] records Exam Limitations: clinical condition - History of Present Illness Initial Comments: the patient is a 66-year-old male who presented to the emergency room in full code. The patient regarding then coded for approximately 35 minutes. Arrest was apparently witnessed at the [facility]. CPR was apparently started there and was continued for 15 minutes prior to EMS arrival. The patient had received 1 shock during that time. By the time EMS arrived he was very difficult to ventilate with a manual bag. He was in asystole and remained in asystole for the next 20 minutes until he arrived here in our emergency room. He received epinephrine and chest compressions. No resumption of spontaneous pulse. By the time of his arrival here the patient had significant subcutaneous air. He was cyanotic. Pulse oximetry was not registering. Pupils are fixed and dilated. No cardiac motion can be heard. No pulses are palpable. The patient is still in asystole on the monitor. The patient was pronounced at 410 in the morning. Cause of the arrest is uncertain but the patient at least had a tension pneumothorax. Whether this was present prior to his arrest or due to the CPR is unknown at this time. Timing/Duration: 1/2 hour Severity: severe Improving Factors: nothing Allergies/Adverse Reactions: Allergies Cyclobenzaprine Allergy (Verified 11/06/16 22:32) Home Medications: Ambulatory Orders Albuterol Sulfate [Proair Hfa] 1 - 2 inh IN Q4H PRN 09/23/16 Alprazolam [Xanax] 1 mg PO Q4H PRN 09/23/16 Amoxicillin & Pot Clavulanate [Augmentin Xr 1000-62.5 mg] 1 tab PO ACHS #20 tab 09/23/16 Azithromycin Tab [Zithromax] 250 mg PO QD 09/23/16 Budesonide (Inhalation) [Pulmicort] 0.5 mg IN BID 09/23/16 Buspirone HCl 5 mg PO TID 09/23/16 Citalopram Hydrobromide [Celexa] 10 mg PO DAILY 09/23/16 Diltiazem HCl [Cardizem] 120 mg PO DAILY 09/23/16 Diphenhydramine HCl 25 mg PO BEDTIME PRN 09/23/16 Famotidine [Pepcid Tab] 20 mg PO BID 09/23/16 Furosemide [Lasix] 20 mg PO DAILY 09/23/16 HYDROcodone 10MG/APAP 325MG [[place] 10/325] 1 tab PO Q4H PRN 09/23/16 Ipratropium [place] 0.02 % IN Q4H PRN 09/23/16 Ipratropium/Albuterol [Duoneb] 3 ml NEB QID 09/23/16 Levalbuterol Nebs [Xopenex NEBS] 1.25 mg NEB Q6H 09/23/16 Loratadine 10 mg PO DAILY 09/23/16 Magnesium Hydroxide [Milk Of Magnesia] 30 ml PO DAILY PRN 09/23/16 Magnesium Hydroxide [Milk Of Magnesia] 30 ml PO EMMY-OTH-DAY 09/23/16 Melatonin 10 mg PO BEDTIME 09/23/16 Potassium Chloride [Micro-K] 10 meq PO DAILY 09/23/16 Tamsulosin [Flomax] 0.4 mg PO QD 09/23/16 predniSONE [Prednisone] 10 mg PO DAILY 09/23/16 Guaifenesin 400 mg PO BID 10/07/16 Review of Systems - Review of Systems Review of Systems: 01/22/17 04:20 unable to give this patient is being coded Past Medical History (General) - Patient Medical History Hx of COPD: Yes Hx Cardiac Disorders: Yes Hx Congestive Heart Failure: No Hx Hypertension: No Hx Diabetes: No Hx Gastroesophageal Reflux: Yes Hx Hepatitis C: Yes Hx MRSA: No - Vaccination History Hx Tetanus, Diphtheria Vaccination: Yes Hx Influenza Vaccination: Yes Hx Pneumococcal Vaccination: Yes - Social History Hx Tobacco Use: No Hx Alcohol Use: No Hx Substance Use: No Hx Substance Use Treatment: No Hx Depression: Yes - Female History Patient : No Family Medical History - Family History Father Family History: Unknown Living Status: Unknown Physical Exam - Physical Exam General Appearance: Other - cyanotic Eye Exam: bilateral other - dilated and fixed Ears, Nose, Throat: other - no gag reflex is present. Mucous membranes are dry. Neck: other - ET tube is in place of the tracheostomy Respiratory: other - the patient has extensive subcutaneous emphysema. Cardiovascular/Chest: other - no cardiac motion is heard Peripheral Pulses: radial,right: 0, radial,left: 0, femoral,right: 0, femoral, left: 0, dorsalis pedis,right: 0, dorsalis pedis,left: 0, posterior tibialis, right: 0, posterior tibialis,left: 0 Rectal Exam: deferred Back Exam: normal inspection Extremity: other - no evidence of new trauma is seen Neurologic: other - see no evidence of brain activity. Skin Exam: pallor - cyanotic Progress - Progress Progress: 01/22/17 04:22 the patient was brought in in full code. Asystole has been present for more than 20 minutes. Asystole is still present. There are no signs of life with this patient. He is cyanotic and has been for an extended period of time. the patient is on arrival. He obviously at least has a tension pneumothorax, but he is well past the point of fixing this problem and improving his outcome. Again it is uncertain if this pneumothorax was a complication of the CPR or the cause of his arrest in the first place. he is discharged to at 4:10 in the morning 01/22/17 04:24 Departure - Departure Clinical Impression: Cardiac arrest, Tension pneumothorax Disposition: Condition: Serious Home Medications: Ambulatory Orders Albuterol Sulfate [Proair Hfa] 1 - 2 inh IN Q4H PRN 09/23/16 Alprazolam [Xanax] 1 mg PO Q4H PRN 09/23/16 Amoxicillin & Pot Clavulanate [Augmentin Xr 1000-62.5 mg] 1 tab PO ACHS #20 tab 09/23/16 Azithromycin Tab [Zithromax] 250 mg PO QD 09/23/16 Budesonide (Inhalation) [Pulmicort] 0.5 mg IN BID 09/23/16 Buspirone HCl 5 mg PO TID 09/23/16 Citalopram Hydrobromide [Celexa] 10 mg PO DAILY 09/23/16 Diltiazem HCl [Cardizem] 120 mg PO DAILY 09/23/16 Diphenhydramine HCl 25 mg PO BEDTIME PRN 09/23/16 Famotidine [Pepcid Tab] 20 mg PO BID 09/23/16 Furosemide [Lasix] 20 mg PO DAILY 09/23/16 HYDROcodone 10MG/APAP 325MG [[place] 10/325] 1 tab PO Q4H PRN 09/23/16 Ipratropium [place] 0.02 % IN Q4H PRN 09/23/16 Ipratropium/Albuterol [Duoneb] 3 ml NEB QID 09/23/16 Levalbuterol Nebs [Xopenex NEBS] 1.25 mg NEB Q6H 09/23/16 Loratadine 10 mg PO DAILY 09/23/16 Magnesium Hydroxide [Milk Of Magnesia] 30 ml PO DAILY PRN 09/23/16 Magnesium Hydroxide [Milk Of Magnesia] 30 ml PO EMMY-OTH-DAY 09/23/16 Melatonin 10 mg PO BEDTIME 09/23/16 Potassium Chloride [Micro-K] 10 meq PO DAILY 09/23/16 Tamsulosin [Flomax] 0.4 mg PO QD 09/23/16 predniSONE [Prednisone] 10 mg PO DAILY 09/23/16 Guaifenesin 400 mg PO BID 10/07/16
[2017-01-22 04:35] VITALS: O2SAT 0
== END 2017-01-22 04:15 | disposition expired ==
LOC: ER 04:08
DX: I46.9 Cardiac arrest, cause unspecified (principal); J93.0 Spontaneous tension pneumothorax; J44.9 Chronic obstructive pulmonary disease, unspecified; K21.9 Gastro-esophageal reflux disease without esophagitis; B19.20 Unspecified viral hepatitis C without hepatic coma; Z88.8 Allergy status to other drugs, medicaments and biological substances; Z79.899 Other long term (current) drug therapy